=== PATIENT | female | born 1965 | race Caucasian/White ===

== ENCOUNTER → 2023-09-05 12:26 | Outpatient (REF) | payer BC, SELFPAY | LOC: HWRAD 12:26 | PROVIDERS: ATTENDING PHYSICIAN Obstetrics & Gynecology Gynecology; FAMILY PHYSICIAN Internal Medicine | DX: Z78.0 Asymptomatic menopausal state (principal); Z01.419 Encounter for gynecological examination (general) (routine) without abnormal findings | CPT/HCPCS: 77063; 77067; 77080 ==

== ENCOUNTER → 2024-11-12 08:11 | Outpatient (REF) | payer BC, SELFPAY | LOC: HWWDC 08:11 | PROVIDERS: ATTENDING PHYSICIAN Obstetrics & Gynecology Gynecology; FAMILY PHYSICIAN Internal Medicine | DX: Z12.31 Encounter for screening mammogram for malignant neoplasm of breast (principal) | CPT/HCPCS: 77063; 77067 ==